=== PATIENT | male | born 1955 | race Caucasian/White ===

== ENCOUNTER 2021-09-12 15:40 | Emergency (ER) | payer MEDICARE, OTHER ==
[2021-09-12] MEDS ORDERED: ONDANSETRON 4 MG/2 ML VIAL ONE (16:20)
[2021-09-12] MEDS ORDERED: MORPHINE 4 MG/ML SYR ONE (16:20)
[2021-09-12] MEDS ORDERED: KETOROLAC 30 MG/ML INJ ONE (18:24)
--- NOTE | 2021-09-12 18:55 | RAD REPORT ---
EXAM DESCRIPTION: CT - Chest Abdomen Pelvis W Cont - 09/12/2021 6:41 pm CLINICAL HISTORY: Chest and abdominal pain status post fall COMPARISON: None TECHNIQUE: Computed axial tomography of the chest, abdomen and pelvis was obtained. 100 cc Isovue-30 0 was administered intravenously. Oral contrast was not requested. This limits evaluation of bowel. All CT scans are performed using dose optimization technique as appropriate and may include automated exposure control or mA/KV adjustment according to patient size. FINDINGS: Mildly displaced fracture left 7th anterolateral rib appears subacute. A pulmonary contusion is not seen. A mediastinal hematoma is not present. No pleural effusion. A pericardial effusion is not present. The liver, spleen, pancreas, and adrenal appear unremarkable Small nonobstructing renal calculi The bladder appears grossly normal. No ascites is seen. IMPRESSION: Mildly displaced fracture left 7th anterolateral rib appears subacute. No acute traumatic injury involving the chest, abdomen nor pelvis is seen
--- NOTE | 2021-09-12 19:10 | ER ---
Nurse's Notes [facility] Name: Kaz Lundberg Age: 66 yrs Sex: Male : 1955 Arrival Date: 09/12/2021 Time: 15:42 Bed 4 Private MD: Diagnosis: Strain of muscle and tendon of back wall of thorax;Strain of muscle, fascia and tendon of abdomen, lower back and pelvis Presentation: 09/12 16:05 Chief complaint: Patient states: Fell off of 2 foot step stool at 1330 today. C/o pain ss to R low-mid back that is worse with repositioning and taking deep breaths. Care prior to arrival: None. Mechanism of Injury: Fall from 2nd story. Trauma event details: Injury occurred in the [facility], Injury occurred: at home. Injury occurred: September 12, 2021 Injury occurred at: 13:30. 16:05 Acuity: MATTHIEU 2 ss 16:05 Method Of Arrival: Ambulatory ss 16:05 Coronavirus screen: Client denies travel out of the [place] in the last 14 days. Ebola ss Screen: Patient denies exposure to infectious person. Patient denies travel to an Ebola-affected area in the 21 days before illness onset. Initial Sepsis Screen: Does the patient meet any 2 criteria? No. Patient's initial sepsis screen is negative. Does the patient have a suspected source of infection? No. Patient's initial sepsis screen is negative. Risk Assessment: Do you want to hurt yourself or someone else? Patient reports no desire to harm self or others. Onset of symptoms was September 12, 2021. Historical: - Allergies: 16:08 No Known Allergies; ss - PMHx: 16:08 Hep C; Hypertensive disorder; ss - PSHx: 16:08 None; ss - Immunization history:: Client reports having NOT received the Covid vaccine. - Social history:: Smoking status: Patient reports the use of cigarette tobacco products, smokes one pack cigarettes per day. Screenin:27 Abuse screen: Denies threats or abuse. Nutritional screening: No deficits noted. aa5 Tuberculosis screening: No symptoms or risk factors identified. Fall Risk Fall in past 12 months (25 points). IV access (20 points). Total Green Fall Scale indicates High Risk Score (45 or more points). Fall prevention measures have been instituted. Assessment: 16:20 General: Appears uncomfortable, Behavior is calm, cooperative. Pain: Complains of pain aa5 in right mid back and right low back Pain currently is 10 out of 10 on a pain scale. Quality of pain is described as sharp, shooting, Pain began today post fall Is continuous, Aggravated by increased activity, repositioning, Noted to be grimacing, moaning. Neuro: Level of Consciousness is awake, alert, obeys commands, Oriented to person, place, time, situation. Cardiovascular: Heart tones S1 S2 present Rhythm is regular. Respiratory: Airway is patent Respiratory effort is even, unlabored, Respiratory pattern is regular, symmetrical. GI: Patient currently denies nausea, vomiting. : No signs and/or symptoms were reported regarding the genitourinary system. EENT: No signs and/or symptoms were reported regarding the EENT system. Derm: Skin is pink, warm \T\ dry. Mild abrasions noted to right lower back. Musculoskeletal: Range of motion: intact in all extremities. 17:25 Reassessment: Patient is alert, oriented x 3, equal unlabored respirations, skin aa5 warm/dry/pink. Patient states feeling better. Reassessment: appears more comfortable than previous assessment. . Pain: Pain currently is 7 out of 10 on a pain scale. 17:35 Reassessment: Patient is alert, oriented x 3, equal unlabored respirations, skin aa5 warm/dry/pink. Requesting more pain medication, PA notified. . 17:35 Pain: Pain currently is 7 out of 10 on a pain scale. aa5 18:20 Reassessment: Patient is alert, oriented x 3, equal unlabored respirations, skin aa5 warm/dry/pink. 18:21 Reassessment: CT notified of normal creatinine results, and CT staff state they will aa5 come and transport pt to CT scan . 18:40 Reassessment: Patient is alert, oriented x 3, equal unlabored respirations, skin aa5 warm/dry/pink. Pt back from CT scan via stretcher . 18:59 Reassessment: Patient is alert, oriented x 3, equal unlabored respirations, skin aa5 warm/dry/pink. Patient states feeling better. Pain: Pain currently is 4 out of 10 on a pain scale. Vital Signs: 16:05 Pulse 67; Resp 20; Temp 97.9(TE); Pulse Ox 97% on R/A; Weight 63.5 kg; Height 5 ft. 8 ss in. (172.72 cm); Pain 10/10; 16:08 BP 155 / 88; ss 16:33 BP 130 / 82; Pulse 59; Resp 20 S; Pulse Ox 96% on R/A; aa5 18:20 BP 132 / 71; Pulse 57; Resp 16 S; Pulse Ox 99% on R/A; aa5 19:27 BP 131 / 72; Pulse 61; Resp 18; Pulse Ox 99% on R/A; kd3 16:05 Body Mass Index 21.29 (63.50 kg, 172.72 cm) ED Course: 15:42 Patient arrived in ED. rg4 15:43 Kanu De La Rosa PA is PHCP. jmm 15:43 Candido Johnson DO is Attending Physician. jmm 16:01 Arm band placed on Patient placed in an exam room, on a stretcher. ll1 16:05 Terra Horner, ROVERTO is Primary Nurse. aa5 16:06 Triage completed. ss 16:20 Patient has correct armband on for positive identification. Bed in low position. Call aa5 light in reach. Side rails up X 1. Adult w/ patient. Pulse ox on. NIBP on. 16:27 Inserted saline lock: 20 gauge in right antecubital area, using aseptic technique. aa5 18:43 CT Chest, Abdomen, Pelvis - W/Contrast In Process Unspecified. EDMS 19:00 Report given to ROVERTO Whittaker and ROVERTO Salgado. aa5 19:27 No provider procedures requiring assistance completed. IV discontinued, intact, kd3 bleeding controlled, No redness/swelling at site. Pressure dressing applied. Administered Medications: 16:29 Drug: morphine 4 mg Route: IVP; Infused Over: 4 mins; Site: right antecubital; aa5 16:35 Follow up: Response: No adverse reaction aa5 16:29 Drug: Zofran (Ondansetron) 4 mg Route: IVP; Site: right antecubital; aa5 16:35 Follow up: Response: No adverse reaction aa5 18:20 Drug: Ketorolac 30 mg Route: IVP; Site: right antecubital; aa5 18:49 Follow up: Response: No adverse reaction aa5 Medication: 19:27 VIS not applicable for this client. kd3 Outcome: 19:10 Discharge ordered by MD. munoz 19:27 Discharged to home ambulatory. kd3 19:27 Condition: stable 19:27 Condition: stable 19:27 Discharge instructions given to patient, Instructed on discharge instructions, follow up and referral plans. Demonstrated understanding of instructions, follow-up care, Prescriptions given X 1, 2. 19:28 Patient left the ED. kd3 Signatures: Dispatcher [employer] EDMS Kanu De La Rosa PA PA jmm Calderon, Audri, RN RN aa5 Carolina Perez RN RN [place] Llanos 4 Fredrick Higuera RN RN ll1 Naomi Trujillo RN RN kd3 Corrections: (The following items were deleted from the chart) 16:30 16:29 Zofran (Ondansetron) 4 mg IVP in right upper arm aa5 aa5 16:30 16:29 morphine 4 mg IVP in right upper arm over 4 mins aa5 aa5 18:23 16:20 Derm: Skin is pink, warm \T\ dry. aa5 aa5
--- NOTE | 2021-09-12 19:10 | EDPHYS ---
Physician Documentation [facility] Name: Kaz Lundberg Age: 66 yrs Sex: Male : 1955 Arrival Date: 09/12/2021 Time: 15:42 Bed 4 Private MD: ED Physician Candido Johnson HPI: 09/12 16:05 This 66 yrs old Male presents to ER via Ambulatory with complaints of Fall Injury. jmm 16:05 Details of fall: The patient fell from a height, from a ladder, approximately 3 feet. jmm Onset: The symptoms/episode began/occurred acutely, just prior to arrival. Associated injuries: The patient sustained injury to the low back. This is a 66 year old male with a history of hep c, htn that presents to the ED with complaints of lower back pain, flank pain after falling from a ladder approx 3 feet high. . 16:05 The patient has not experienced similar symptoms in the past. jmm Historical: - Allergies: 16:08 No Known Allergies; ss - PMHx: 16:08 Hep C; Hypertensive disorder; ss - PSHx: 16:08 None; ss - Immunization history:: Client reports having NOT received the Covid vaccine. - Social history:: Smoking status: Patient reports the use of cigarette tobacco products, smokes one pack cigarettes per day. ROS: 16:05 Constitutional: Negative for fever, chills, and weight loss, Cardiovascular: Negative jmm for chest pain, palpitations, and edema, Respiratory: Negative for shortness of breath, cough, wheezing, and pleuritic chest pain, Abdomen/GI: Negative for abdominal pain, nausea, vomiting, diarrhea, and constipation. 16:05 Back: Positive for pain with movement. 16:05 All other systems are negative. Exam: 16:05 Constitutional: This is a well developed, well nourished patient who is awake, alert, jmm and in no acute distress. Head/Face: atraumatic. Eyes: EOMI, no conjunctival erythema appreciated ENT: Moist Mucus Membranes Neck: Trachea midline, Supple Chest/axilla: Normal chest wall appearance and motion. Cardiovascular: Regular rate and rhythm. No edema appreciated Respiratory: Normal respirations, no respiratory distress appreciated 16:05 ENT: Moist Mucus Membranes Skin: General appearance color normal MS/ Extremity: Moves all extremities, no obvious deformities appreciated, no edema noted to the lower extremities Neuro: Awake and alert Psych: Behavior is normal, Mood is normal, Patient is cooperative and pleasant 16:05 Abdomen/GI: Inspection: abdomen appears normal, Bowel sounds: normal, Palpation: abdomen is soft and non-tender, in all quadrants, soft. 16:05 Back: pain, that is moderate, of the right subscapular area and right mid back. Vital Signs: 16:05 Pulse 67; Resp 20; Temp 97.9(TE); Pulse Ox 97% on R/A; Weight 63.5 kg; Height 5 ft. 8 ss in. (172.72 cm); Pain 10/10; 16:08 BP 155 / 88; ss 16:33 BP 130 / 82; Pulse 59; Resp 20 S; Pulse Ox 96% on R/A; aa5 18:20 BP 132 / 71; Pulse 57; Resp 16 S; Pulse Ox 99% on R/A; aa5 19:27 BP 131 / 72; Pulse 61; Resp 18; Pulse Ox 99% on R/A; kd3 16:05 Body Mass Index 21.29 (63.50 kg, 172.72 cm) ss MDM: 16:05 Patient medically screened. [facility] 19:08 Data reviewed: vital signs, nurses notes. Counseling: I had a detailed discussion with [facility] the patient and/or guardian regarding: the historical points, exam findings, and any diagnostic results supporting the discharge/admit diagnosis, radiology results, the need for outpatient follow up, to return to the emergency department if symptoms worsen or persist or if there are any questions or concerns that arise at home. ED course: CT reveals old rib fracture. No acute injury. Patient advised to follow up with pcp and otherwise given strict return precautions. Patient understood and agrees with the plan of care. . 09/12 17:28 Order name: Creatinine, Serum [facility] 09/12 17:42 Order name: Creatinine; Complete Time: 18:21 [facility] 09/12 16:06 Order name: CT Chest, Abdomen, Pelvis - W/Contrast; Complete Time: 18:58 [facility] 09/12 16:06 Order name: Saline Lock; Complete Time: 16:29 [facility] Administered Medications: 16:29 Drug: morphine 4 mg Route: IVP; Infused Over: 4 mins; Site: right antecubital; aa5 16:35 Follow up: Response: No adverse reaction aa5 16:29 Drug: Zofran (Ondansetron) 4 mg Route: IVP; Site: right antecubital; aa5 16:35 Follow up: Response: No adverse reaction aa5 18:20 Drug: Ketorolac 30 mg Route: IVP; Site: right antecubital; aa5 18:49 Follow up: Response: No adverse reaction aa5 Disposition: 20:11 Co-signature as Attending Physician, Candido Johnson DO I was immediately available on-site ms3 in the Emergency Department for consultation in the care of the patient.. Disposition Summary: 09/12/21 19:10 Discharge Ordered Location: Home [facility] Condition: Stable jmm Diagnosis - Strain of muscle and tendon of back wall of thorax jmm - Strain of muscle, fascia and tendon of abdomen, lower back and pelvis [facility] Followup: [facility] - With: Private Physician - When: 2 - 3 days - Reason: Recheck today's complaints, Continuance of care, Re-evaluation by your physician Discharge Instructions: - Discharge Summary Sheet [facility] - Thoracic Strain [facility] Forms: - Medication Reconciliation Form [facility] - Thank You Letter [facility] - Antibiotic Education [facility] - Prescription Opioid Use [facility] Prescriptions: - Diclofenac Sodium 75 mg Oral Tablet Sustained Release - take 1 tablet by ORAL route 2 times per day; 30 tablet; Refills: 0, Product [facility] Selection Permitted - orphenadrine citrate 100 mg Oral Tablet Sustained Release - take 1 tablet by ORAL route 2 times per day As needed; 20 tablet; Refills: 0, [facility] Product Selection Permitted Signatures: Dispatcher [employer] Kanu Cano PA PA jmm Calderon, Audri RN ROVERTO aa5 Carolina Perez RN RN Candido Johnson DO DO ms3
[2021-09-12 20:50] VITALS: TEMP 97.9
[2021-09-12 20:57] VITALS: O2SAT 99
[2021-09-12 20:59] VITALS: BP 131/72
== END 2021-09-12 19:28 | disposition home or self-care (01) ==
LOC: ER 15:40
DX: S39.012A Strain of muscle, fascia and tendon of lower back, initial encounter (principal); S39.013A Strain of muscle, fascia and tendon of pelvis, initial encounter; S39.011A Strain of muscle, fascia and tendon of abdomen, initial encounter; S29.012A Strain of muscle and tendon of back wall of thorax, initial encounter; I10 Essential (primary) hypertension; F17.210 Nicotine dependence, cigarettes, uncomplicated
CPT/HCPCS: 36415; 82565; 71260; 74177; Q9967; J2405

== ENCOUNTER 2024-04-22 07:14 | Day surgery (SDC) | payer OTHER ==
[2024-04-19 13:46] LABS: Absolute Eosinophils 0.2 K/uL (0-0.5); Absolute Lymphocytes (CBC) 3.8 K/uL (0.7-4.9); Absolute Monocytes 0.5 K/uL (0.1-1.3); Absolute Neutrophil 3.5 K/uL (1.8-8.0); Basophils % 0.2 % (0-1.3); Hematocrit 37.7 % (39.6-49.0); Hemoglobin 13.2 g/dL (13.6-17.9); MCH 31.9 pg (27.0-35.0); MCV 91.3 fL (80-100); MPV 10.9 fL (7.6-11.3); Monocytes % 6.3 % (3.3-12.3); Neutrophils % 43.5 % (41.7-73.7); Nucleated Red Blood Cells % 0.1 % (0-0); Platelets 170 thou/uL (152-406); RBC Red Blood Cell Count 4.13 M/uL (4.33-5.43); Red Cell Distribution Width 14.2 % (12.1-15.2)
[2024-04-19 13:58] LABS: Anion Gap 5.1 mEq/L (5.0-15.0); Potassium 4.1 mEq/L (3.5-5.1)
--- NOTE | 2024-04-20 11:45 | EKG ---
Test Date: 2024-04-19 Test Time: 14:30:21 Brass Molder: SHANNON MEASUREMENT RESULTS: Intervals: Rate: 58 CO: 148 QRSD: 82 QT: 392 QTc: 384 Butler: P: 80 CO: 148 QRS: 62 T: 67 INTERPRETIVE STATEMENTS: Sinus bradycardia Septal infarct, age undetermined Abnormal ECG No previous ECG available for comparison Electronically Signed On 04-20-24 11:44:00 FUR CUTTER by Manuel Park
[2024-04-22] MEDS: Ringers Lactate 1,000 ML IV ONE (07:50)
[2024-04-22] MEDS ORDERED: LIDOCAINE 1% MPF 5 ML VIAL ONE (07:52)
[2024-04-22] MEDS ORDERED: propofoL 200 MG/20 ML VIAL IV ONE (07:52)
[2024-04-22 11:00] VITALS: TEMP 97.4; O2SAT 100
[2024-04-22 11:02] VITALS: BP 128/79
== END 2024-04-22 10:48 | disposition home or self-care (01) ==
LOC: OR 07:14
PROVIDERS: ATTEND Surgery
PROC: 0DJD8ZZ Inspection of Lower Intestinal Tract, Via Natural or Artificial Opening Endoscopic (ICD-10-PCS; principal; 2024-04-22 08:45)
DX: Z12.11 Encounter for screening for malignant neoplasm of colon (principal); K64.8 Other hemorrhoids
CPT/HCPCS: 93005; 85025; 80048; 36415; J2704; J2003; J7120; G0121